=== PATIENT | male | born 1990 | race Caucasian/White ===

== ENCOUNTER 2016-02-05 10:05 | Inpatient (IN) | payer OTHER ==
[2016-02-05 10:25] VITALS: BMI 25.7
--- NOTE | 2016-02-05 12:15 | HP ---
CIWA Score - CIWA Score Nausea/Vomitin Muscle Tremors: 3 Anxiety: 3 Agitation: 2 Paroxysmal Sweats: 1-Minimal Palms Moist Orientation: 0-Oriented Tacttile Disturbances: 2-Mild Itch/Numbness/Burn Auditory Disturbances: 2-Mild Harshness/Frighten Visual Disturbances: 2-Mild Sensitivity Headache: 2-Mild CIWA-Ar Total Score: 20 Admission ROS BHS - HPI Chief Complaint: i need help to stop drinking alcohol,cocaine Allergies/Adverse Reactions: Allergies Allergy/AdvReac Type Severity Reaction Status Date / Time No Known Allergies Allergy Verified 02/20/14 17:55 History of Present Illness: this 25 year sold male with alcohol and cocaine dependence,withdrawal symptom, last sjrh 02/20/14 to 02/24/14 syncope alcohol related gerd longest period of sobriety 3 months Exam Limitations: No Limitations - Ebola screening Have you traveled outside of the country in the last 21 days: No Have you had contact with anyone from an Ebola affected area: No Have you been sick,other than usual withdrawal symptoms: No Do you have a fever: No - Review of Systems Constitutional: Diaphoresis, Loss of Appetite, Malaise, Night Sweats, Changes in sleep, Weakness EENT: reports: Nose Congestion Respiratory: reports: No Symptoms reported (asthma) Cardiac: reports: No Symptoms Reported GI: reports: Nausea, Poor Appetite, Vomiting, Abdominal cramping : reports: No Symptoms Reported Musculoskeletal: reports: Back Pain, Muscle Pain Integumentary: reports: No Symptoms Reported Neuro: reports: Headache, Tremors Endocrine: reports: No Symptoms Reported Hematology: reports: No Symptoms Reported Psychiatric: reports: No Sypmtoms Reported Patient History - Patient Medical History Hx Anemia: No Hx Asthma: Yes (on albuterol inhaler) Hx Chronic Obstructive Pulmonary Disease (COPD): No Hx Cancer: No Hx Cardiac Disorders: No Hx Congestive Heart Failure: No Hx Hypertension: No Hx Hypercholesterolemia: No Hx Pacemaker: No HX Cerebrovascular Accident: No Hx Seizures: No Hx Dementia: No Hx Diabetes: No Hx Gastrointestinal Disorders: No Hx Liver Disease: No Hx Genitourinary Disorders: No Hx Sexually Transmitted Disorders: No Hx Renal Disease (ESRD): No Hx Thyroid Disease: No Hx Human Immunodeficiency Virus (HIV): No (LAST 01/19 negative) Hx Hepatitis C: No Hx Depression: No Hx Suicide Attempt: No Hx Bipolar Disorder: No Hx Schizophrenia: No Other Medical History: no suicidal,no homicidal - Patient Surgical History Past Surgical History: No Hx Neurologic Surgery: No Hx Cataract Extraction: No Hx Cardiac Surgery: No Hx Lung Surgery: No Hx Breast Surgery: No Hx Breast Biopsy: No Hx Abdominal Surgery: No Hx Appendectomy: No Hx Cholecystectomy: No Hx Genitourinary Surgery: No Hx Section: No Hx Orthopedic Surgery: No Anesthesia Reaction: No - PPD History Previous Implant?: Yes Documented Results: Negative w/o proof Implanted On Prior [facility] Admission?: Yes Date: 02/22/14 PPD to be Administered?: Yes - Reproductive History Patient : No - Smoking Cessation Smoking history: Never smoked Have you smoked in the past 12 months: No Hx Chewing Tobacco Use: No - Substance & Tx. History Hx Alcohol Use: Yes Hx Substance Use: Yes Substance Use Type: Alcohol, Cocaine, Tranquilizers - Substances Abused Alcohol Route: Oral Frequency: Daily Amount used: 1/2 litre Ruth Age of first use: 15 Date of Last Use: 02/04/16 Alprazolam (Xanax) Route: Oral Frequency: 1-3 times last 30 days Amount used: 2 mg Age of first use: 20 Date of Last Use: 02/04/16 Cocaine Route: Inhalation Frequency: 1-3 times last 30 days Amount used: 0.2 to 0.3 gm Age of first use: 17 Date of Last Use: 02/04/16 Family Disease History - Family Disease History Family History: Denies Admission Physical Exam BHS - Vital Signs Vital Signs: Vital Signs - 24 hr 02/05/16 10:23 Temperature 97.3 F L Pulse Rate 68 Respiratory 18 Rate Blood Pressure 116/81 - Physical General Appearance: Yes: Moderate Distress, Tremorous, Irritable, Sweating, Anxious HEENTM: Yes: Nasal Congestion Respiratory: Yes: Lungs Clear Neck: Yes: Within Normal Limits Breast: Yes: Within Normal Limits Cardiology: Yes: Within Normal Limits, Regular Rhythm, Regular Rate, S1, S2 Abdominal: Yes: Normal Bowel Sounds, Non Tender, Flat, Soft Genitourinary: Yes: Within Normal Limits Back: Yes: Muscle Spasm Musculoskeletal: Yes: Back pain, Muscle Pain Extremities: Yes: Tremors Neurological: Yes: Within Normal Limits, ergonomist II-XII NML intact, Fully Oriented, Alert, Motor Strength 5/5 Integumentary: Yes: Dry Lymphatic: Yes: Within Normal Limits - Diagnostic (1) Asthma Current Visit: No Status: Acute (2) Alcohol dependence with uncomplicated withdrawal Current Visit: Yes Status: Acute (3) Cocaine dependence, uncomplicated Current Visit: Yes Status: Acute (4) Uncomplicated sedative, hypnotic, or anxiolytic withdrawal Current Visit: Yes Status: Acute (5) GERD (gastroesophageal reflux disease) Current Visit: Yes Status: Acute (6) Syncope Current Visit: Yes Status: Acute Cleared for Admission [facility] - Detox or Rehab [facility] Level of Care: Medically Managed Detox Regimen/Protocol: Librium [facility] Breath Alcohol Content Breath Alcohol Content: 0 Urine Drug Screen - Results Drug Screen Negative: No Urine Drug Screen Results: FREIDA-Cocaine, BZO-Benzodiazepines
[2016-02-05] MEDS ORDERED: LOPERAMIDE HCL 2 MG CAPSULE PO PRN (12:28)
[2016-02-05] MEDS ORDERED: MAGNESIUM CITRATE 300 ML BOTTLE PO PRN (12:28)
[2016-02-05] MEDS ORDERED: MENTHOL/PHENOL 1 EACH UD MM PRN (12:28)
[2016-02-05] MEDS ORDERED: guaiFENesin/D-METHORPHAN HB 10 ML UNIT-DOSE CUPS PO PRN (12:28)
[2016-02-05] MEDS ORDERED: diphenhydrAMINE HCL 50 MG CAPSULE PO PRN (12:28)
[2016-02-05] MEDS ORDERED: P-EPHED 60MG/TRIPROLIDI 2.5MG TABLET PO PRN (12:28)
[2016-02-05] MEDS ORDERED: ACETAMINOPHEN 325 MG TABLET (FP) PO PRN (12:28)
[2016-02-05] MEDS ORDERED: MAG HYDROX/AL HYDROX/SIMETH 30 ML UNIT-DOSE CUP PO PRN (12:28)
[2016-02-05] MEDS ORDERED: chlordiazePOXIDE HCL 25 MG CAPSULE PO PRN (12:28)
[2016-02-05] MEDS ORDERED: hydrOXYzine PAMOATE 50 MG CAPSULE (FP) PO PRN (12:28)
[2016-02-05] MEDS ORDERED: MAGNESIUM HYDROX 2400MG/30ML ORAL SUSPENSION 30 ML CUP PO PRN (12:28)
[2016-02-05] MEDS ORDERED: IBUPROFEN 400 MG TABLET (FP) PO PRN (12:28)
[2016-02-05] MEDS ORDERED: ALBUTEROL SO4 6.7 GM HFA INHALER IH PRN (12:30)
[2016-02-05] MEDS ORDERED: chlordiazePOXIDE HCL 25 MG CAPSULE PO ONE (12:39)
[2016-02-05 16:02] LABS: URINE APPEARANCE CLEAR; URINE BILIRUBIN NEGATIVE (NEGATIVE); URINE BLOOD NEGATIVE (NEGATIVE); URINE COLOR YELLOW; URINE GLUCOSE (UA) NEGATIVE (NEGATIVE); URINE KETONE NEGATIVE (NEGATIVE); URINE LEUK ESTERASE NEGATIVE (NEGATIVE); URINE NITRITE NEGATIVE (NEGATIVE); URINE PROTEIN NEGATIVE (NEGATIVE); URINE UROBILINOGEN NEGATIVE E.U./dl (0.2-1.0)
[2016-02-05] MEDS: chlordiazePOXIDE HCL 25 MG CAPSULE PO SCH ×2 (19:33→22:19)
[2016-02-05] MEDS: THIAMINE HCL 100 MG TABLET (FP) PO SCH (22:19)
[2016-02-06] MEDS: chlordiazePOXIDE HCL 25 MG CAPSULE PO SCH ×4 (06:22→22:06)
[2016-02-06 10:39] LABS: MCH 29.2 pg (25.7-33.7); MCHC 34.2 g/dl (32.0-35.9); MEAN CELL VOLUME 85.4 fl (80-96); MEAN PLT VOLUME 10.9 fl (7.5-11.1); PLATELET COUNT 160 K/MM3 (134-434); RDW 13.9 % (11.9-15.9); WHITE BLOOD COUNT 6.7 K/mm3 (4.0-10.0)
[2016-02-06] MEDS: PRENATAL VITAMINS W/ FOLIC ACID TABLET (FP) PO SCH (10:50)
[2016-02-06] MEDS: PATIENT'S OWN MEDICATION (NON-FORMULARY) (Omeprazole 40 MG) PO SCH (10:51)
[2016-02-06 10:56] LABS: ALBUMIN 4.2 g/dl (3.4-5.0); ALK PHOS 65 U/L (45-117); ANION GAP 4 (8-16); CALCIUM 9.2 mg/dL (8.5-10.1); CO2 32 mmol/L (21-32); CREATININE 1.1 mg/dL (0.7-1.3); GLUCOSE,RANDOM 90 mg/dL (74-106); SGOT/AST 36 U/L (15-37); SGPT/ALT 28 U/L (12-78); TOT PROT 7.5 g/dl (6.4-8.2)
--- NOTE | 2016-02-06 13:14 | PN ---
S CIWA - CIWA Score Nausea/Vomitin Muscle Tremors: 3 Anxiety: 3 Agitation: 2 Paroxysmal Sweats: 1-Minimal Palms Moist Orientation: 0-Oriented Tacttile Disturbances: 1-Very Mild Itch/Numbness Auditory Disturbances: 1-Very Mild Visual Disturbances: 1-Very Mild Sensitivity Headache: 2-Mild CIWA-Ar Total Score: 17 BHS Progress Note (SOAP) Subjective: alert,irritable,anxious,interrupted sleep,tremor,pain in the body Objective: 02/06/16 13:12 Vital Signs Temperature 97.3 F L 02/06/16 10:00 Pulse Rate 64 02/06/16 10:00 Respiratory Rate 18 02/06/16 10:00 Blood Pressure 119/68 02/06/16 10:00 O2 Sat by Pulse Oximetry (%) ekg nsr with sinus arrhythmia Laboratory Last Values WBC 6.7 K/mm3 (4.0-10.0) 02/06/16 07:50 RBC 5.35 M/mm3 (4.00-5.60) 02/06/16 07:50 Hgb 15.6 GM/dL (11.7-16.9) 02/06/16 07:50 Hct 45.6 % (35.4-49) 02/06/16 07:50 MCV 85.4 fl (80-96) 02/06/16 07:50 MCHC 34.2 g/dl (32.0-35.9) 02/06/16 07:50 RDW 13.9 % (11.9-15.9) 02/06/16 07:50 Plt Count 160 K/MM3 (134-434) 02/06/16 07:50 MPV 10.9 fl (7.5-11.1) D 02/06/16 07:50 Sodium 140 mmol/L (136-145) 02/06/16 07:50 Potassium 4.1 mmol/L (3.5-5.1) 02/06/16 07:50 Chloride 104 mmol/L (98-107) 02/06/16 07:50 Carbon Dioxide 32 mmol/L (21-32) 02/06/16 07:50 Anion Gap 4 (8-16) L 02/06/16 07:50 BUN 9 mg/dL (7-18) 02/06/16 07:50 Creatinine 1.1 mg/dL (0.7-1.3) D 02/06/16 07:50 Creat Clearance w eGFR > 60 (>60) 02/06/16 07:50 Random Glucose 90 mg/dL (74-106) 02/06/16 07:50 Calcium 9.2 mg/dL (8.5-10.1) 02/06/16 07:50 Total Bilirubin 1.0 mg/dL (0.2-1.0) D 02/06/16 07:50 AST 36 U/L (15-37) D 02/06/16 07:50 ALT 28 U/L (12-78) D 02/06/16 07:50 Alkaline Phosphatase 65 U/L (45-117) D 02/06/16 07:50 Total Protein 7.5 g/dl (6.4-8.2) 02/06/16 07:50 Albumin 4.2 g/dl (3.4-5.0) 02/06/16 07:50 Urine Color Yellow 02/05/16 14:40 Urine Appearance Clear 02/05/16 14:40 Urine pH 5.0 (5.0-8.0) 02/05/16 14:40 Ur Specific [place] 1.028 (1.001-1.035) 02/05/16 14:40 Urine Protein Negative (NEGATIVE) 02/05/16 14:40 Urine Glucose (UA) Negative (NEGATIVE) 02/05/16 14:40 Urine Ketones Negative (NEGATIVE) 02/05/16 14:40 Urine Blood Negative (NEGATIVE) 02/05/16 14:40 Urine Nitrite Negative (NEGATIVE) 02/05/16 14:40 Urine Bilirubin Negative (NEGATIVE) 02/05/16 14:40 Urine Urobilinogen Negative E.U./dl (0.2-1.0) 02/05/16 14:40 Ur Leukocyte Esterase Negative (NEGATIVE) 02/05/16 14:40 RPR Titer Nonreactive (NONREACTIVE) 02/06/16 07:50 Assessment: 02/06/16 13:13 withdrawal symptom Plan: continue detox
[2016-02-06] MEDS: THIAMINE HCL 100 MG TABLET (FP) PO SCH (22:06)
[2016-02-07] MEDS: chlordiazePOXIDE HCL 25 MG CAPSULE PO SCH ×2 (05:46→10:18)
[2016-02-07] MEDS: PRENATAL VITAMINS W/ FOLIC ACID TABLET (FP) PO SCH (10:19)
[2016-02-07] MEDS: PATIENT'S OWN MEDICATION (NON-FORMULARY) (Omeprazole 40 MG) PO SCH (10:19)
[2016-02-07 13:46] VITALS: BP 140/79; PULSE 82; TEMP 97.3
--- NOTE | 2016-02-07 14:33 | PN ---
[facility] CIWA - CIWA Score Nausea/Vomitin-No Nausea/No Vomiting Muscle Tremors: 3 Anxiety: 4-Mod. Anxious/Guarded Agitation: 3 Paroxysmal Sweats: 3 Orientation: 0-Oriented Tacttile Disturbances: 0-None Auditory Disturbances: 0-None Visual Disturbances: 0-None Headache: 0-None Present CIWA-Ar Total Score: 13 S Progress Note (SOAP) Subjective: SWEATING,ANXIETY,TREMORS,INTERRUPTED SLEEP Objective: 02/07/16 14:32 Vital Signs - 8 hr 02/07/16 02/07/16 10:00 13:43 Temperature 96.5 F L 97.3 F L Pulse Rate 70 82 Respiratory 18 18 Rate Blood Pressure 121/71 140/79 Laboratory Last Values WBC 6.7 K/mm3 (4.0-10.0) 02/06/16 07:50 RBC 5.35 M/mm3 (4.00-5.60) 02/06/16 07:50 Hgb 15.6 GM/dL (11.7-16.9) 02/06/16 07:50 Hct 45.6 % (35.4-49) 02/06/16 07:50 MCV 85.4 fl (80-96) 02/06/16 07:50 MCHC 34.2 g/dl (32.0-35.9) 02/06/16 07:50 RDW 13.9 % (11.9-15.9) 02/06/16 07:50 Plt Count 160 K/MM3 (134-434) 02/06/16 07:50 MPV 10.9 fl (7.5-11.1) D 02/06/16 07:50 Sodium 140 mmol/L (136-145) 02/06/16 07:50 Potassium 4.1 mmol/L (3.5-5.1) 02/06/16 07:50 Chloride 104 mmol/L (98-107) 02/06/16 07:50 Carbon Dioxide 32 mmol/L (21-32) 02/06/16 07:50 Anion Gap 4 (8-16) L 02/06/16 07:50 BUN 9 mg/dL (7-18) 02/06/16 07:50 Creatinine 1.1 mg/dL (0.7-1.3) D 02/06/16 07:50 Creat Clearance w eGFR > 60 (>60) 02/06/16 07:50 Random Glucose 90 mg/dL (74-106) 02/06/16 07:50 Calcium 9.2 mg/dL (8.5-10.1) 02/06/16 07:50 Total Bilirubin 1.0 mg/dL (0.2-1.0) D 02/06/16 07:50 AST 36 U/L (15-37) D 02/06/16 07:50 ALT 28 U/L (12-78) D 02/06/16 07:50 Alkaline Phosphatase 65 U/L (45-117) D 02/06/16 07:50 Total Protein 7.5 g/dl (6.4-8.2) 02/06/16 07:50 Albumin 4.2 g/dl (3.4-5.0) 02/06/16 07:50 Urine Color Yellow 02/05/16 14:40 Urine Appearance Clear 02/05/16 14:40 Urine pH 5.0 (5.0-8.0) 02/05/16 14:40 Ur Specific [place] 1.028 (1.001-1.035) 02/05/16 14:40 Urine Protein Negative (NEGATIVE) 02/05/16 14:40 Urine Glucose (UA) Negative (NEGATIVE) 02/05/16 14:40 Urine Ketones Negative (NEGATIVE) 02/05/16 14:40 Urine Blood Negative (NEGATIVE) 02/05/16 14:40 Urine Nitrite Negative (NEGATIVE) 02/05/16 14:40 Urine Bilirubin Negative (NEGATIVE) 02/05/16 14:40 Urine Urobilinogen Negative E.U./dl (0.2-1.0) 02/05/16 14:40 Ur Leukocyte Esterase Negative (NEGATIVE) 02/05/16 14:40 RPR Titer Nonreactive (NONREACTIVE) 02/06/16 07:50 Hepatitis C Antibody 0.1 s/co ratio (0.0-0.9) 02/06/16 07:50 LABS NOTED Assessment: 02/07/16 14:32 WITHDRAWAL SX. Plan: CONTINUE DETOX
--- NOTE | 2016-02-07 16:53 | DS ---
[facility] Detox Discharge Summary Admission Date: 02/05/16 Discharge Date: 02/07/16 - History Present History: Alcohol Dependence, Cocaine Dependence, Sedative Dependence Pertinent Past History: GERD ASTHMA - Physical Exam Results Vital Signs: Vital Signs Temperature 97.3 F L 02/07/16 13:43 Pulse Rate 82 02/07/16 13:43 Respiratory Rate 18 02/07/16 13:43 Blood Pressure 140/79 02/07/16 13:43 O2 Sat by Pulse Oximetry (%) Pertinent Admission Physical Exam Findings: WITHDRAWAL SX. Laboratory Tests 02/05/16 02/06/16 02/06/16 14:40 07:50 07:50 WBC 6.7 RBC 5.35 Hgb 15.6 Hct 45.6 MCV 85.4 MCHC 34.2 RDW 13.9 Plt Count 160 MPV 10.9 D Sodium 140 Potassium 4.1 Chloride 104 Carbon Dioxide 32 Anion Gap 4 L BUN 9 Creatinine 1.1 D Creat Clearance w eGFR > 60 Random Glucose 90 Calcium 9.2 Total Bilirubin 1.0 D AST 36 D ALT 28 D Alkaline Phosphatase 65 D Total Protein 7.5 Albumin 4.2 Urine Color Yellow Urine Appearance Clear Urine pH 5.0 Ur Specific [place] 1.028 Urine Protein Negative Urine Glucose (UA) Negative Urine Ketones Negative Urine Blood Negative Urine Nitrite Negative Urine Bilirubin Negative Urine Urobilinogen Negative Ur Leukocyte Esterase Negative RPR Titer Hepatitis C Antibody 02/06/16 02/06/16 07:50 07:50 WBC RBC Hgb Hct MCV MCHC RDW Plt Count MPV Sodium Potassium Chloride Carbon Dioxide Anion Gap BUN Creatinine Creat Clearance w eGFR Random Glucose Calcium Total Bilirubin AST ALT Alkaline Phosphatase Total Protein Albumin Urine Color Urine Appearance Urine pH Ur Specific [place] Urine Protein Urine Glucose (UA) Urine Ketones Urine Blood Urine Nitrite Urine Bilirubin Urine Urobilinogen Ur Leukocyte Esterase RPR Titer Nonreactive Hepatitis C Antibody 0.1 LABS NOTED - Medication Discharge Medications: Ambulatory Orders Albuterol Sulfate Inhaler - [Ventolin HFA Inhaler -] 2 inh IH Q4H PRN #1 canister 02/24/14 Omeprazole 40 mg PO DAILY 02/05/16 - Diagnosis (1) Alcohol dependence with uncomplicated withdrawal Status: Acute (2) Cocaine dependence with intoxication, uncomplicated Status: Acute (3) GERD (gastroesophageal reflux disease) Status: Acute Qualifiers: Esophagitis presence: without esophagitis Qualified Code(s): K21.9 - Gastro-esophageal reflux disease without esophagitis (4) Uncomplicated sedative, hypnotic, or anxiolytic withdrawal Status: Acute (5) Asthma Status: Acute Qualifiers: Asthma severity: mild intermittent Asthma complication type: uncomplicated Qualified Code(s): J45.20 - Mild intermittent asthma, uncomplicated (6) Cannabis dependence Status: Acute - AMA Did Patient Leave Against Medical Advice: Yes
[2016-02-07] MEDS ORDERED: chlordiazePOXIDE 5 MG CAPSULE PO SCH (17:00)
[2016-02-08] MEDS ORDERED: chlordiazePOXIDE HCL 10 MG CAPSULE PO SCH (17:00)
== END 2016-02-07 15:20 | disposition left against medical advice (07) | DRG 770 ==
LOC: YASAS 10:05 → Y6N 11:08
PROVIDERS: ADMIT Internal Medicine Addiction Medicine; ATTEND Internal Medicine Addiction Medicine
PROC: HZ2ZZZZ Detoxification Services for Substance Abuse Treatment (ICD-10-PCS; principal; 2016-02-05)
DX: F10.230 Alcohol dependence with withdrawal, uncomplicated (principal); F13.230 Sedative, hypnotic or anxiolytic dependence with withdrawal, uncomplicated; F14.20 Cocaine dependence, uncomplicated; F12.20 Cannabis dependence, uncomplicated; K21.9 Gastro-esophageal reflux disease without esophagitis; J45.20 Mild intermittent asthma, uncomplicated; I49.9 Cardiac arrhythmia, unspecified; Z86.79 Personal history of other diseases of the circulatory system
CPT/HCPCS: 36415; 80053; 81003; 85027; 86593; 86803; 93005; 93010